=== PATIENT | female | born 1985 | race Asian ===

== ENCOUNTER 2019-06-17 15:21 | Emergency (ER) | payer OTHER ==
[~2019-06-17] VITALS: Ht 160 cm; Wt 65.8 kg
[2019-06-17 15:48] VITALS: BP_SYST 146
--- NOTE | 2019-06-17 18:13 | NUR ---
Patient to ER bed 03 to gown for evaluation. Side rails up. Report given to JUDY AKHTAR
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
--- NOTE | 2019-06-17 18:22 | NUR ---
ER Dr. Joya at bedside examining patient.
[2019-06-17] MEDS ORDERED: MECLIZINE HCL 25 MG TABLET (ANITVERT) PO ONE (18:30)
--- NOTE | 2019-06-17 18:30 | NUR ---
Patient ambulated to the bathroom with a steady gait. Urine specimen collected.
--- NOTE | 2019-06-17 18:41 | NUR ---
Administered Meclizine PO as ordered by Dr. Joya. Patient tolerated the medication well. See eMAR for details.
--- NOTE | 2019-06-17 18:48 | NUR ---
Patient is taken to CT via gurney, in stable condition.
--- NOTE | 2019-06-17 19:06 | NUR ---
Patient ambulated to the bathroom with a steady gait.
[2019-06-17 19:19] VITALS: BP_SYST 146
--- NOTE | 2019-06-17 19:19 | NUR ---
Patient given written and verbal discharge instructions and verbalizes understanding. ER MD discussed with patient the results and treatment provided. Patient in stable condition. ID arm band removed. Rx of Tramadol and Antivert given. Patient educated on pain management and to follow up with PMD. Pain Scale 0/10. Opportunity for questions provided and answered. Medication side effect fact sheet provided.
== END 2019-06-17 19:19 | disposition home or self-care (01) ==
LOC: SED 15:21
DX: S09.90XA Unspecified injury of head, initial encounter (principal); M25.512 Pain in left shoulder; M25.531 Pain in right wrist; M25.552 Pain in left hip; V49.40XA Driver injured in collision with unspecified motor vehicles in traffic accident, initial encounter; Y93.89 Activity, other specified; Y92.89 Other specified places as the place of occurrence of the external cause; Y99.8 Other external cause status
CPT/HCPCS: 70450; 72170; 73030; 73130; 99284; J8597